=== PATIENT | female | born 1985 | race American Indian/Alaskan Native ===

== ENCOUNTER 2017-06-10 05:21 | Inpatient (IN) | payer MEDICAID ==
[~2017-06-10] VITALS: Ht 165.1 cm; Wt 128.0 kg
[2017-06-10] MEDS ORDERED: OXYTOCIN 30U/ 0.9% NaCL 500ML 500 ML IV SCH (05:22)
[2017-06-10] MEDS ORDERED: LACTATED RINGERS 1,000 ML IV SCH ×2 (05:22→05:30)
[2017-06-10] MEDS ORDERED: SODIUM CITRATE/CITRIC ACID 30 ML UDC PO ONE (05:30)
[2017-06-10] MEDS ORDERED: METOCLOPRAMIDE 5 MG/ML, 2ML IV ONE (05:30)
[2017-06-10] MEDS ORDERED: LACTATED RINGERS 1,000 ML IVBOLUS ONE (05:30)
[2017-06-10 05:36] VITALS: BP 115/65
[2017-06-10 06:02] LABS: HEMATOCRIT 36.2 % (34.6-47.8); HEMOGLOBIN 12.4 g/dL (11.7-16.4); WHITE BLOOD COUNT 7.2 x10^3/uL (3.4-10)
[2017-06-10] MEDS ORDERED: METOCLOPRAMIDE 5 MG/ML, 2ML ONE ×2 (06:03→07:38)
[2017-06-10] MEDS ORDERED: SODIUM CITRATE/CITRIC ACID 30 ML UDC ONE (06:03)
[2017-06-10] MEDS ORDERED: FENTANYL PF 100 MCG/2ML ONE (07:16)
[2017-06-10] MEDS ORDERED: ALBUTEROL SULFATE 2.5 MG/3 ML NPPB PRN (07:30)
[2017-06-10] MEDS ORDERED: FENTANYL PF 100 MCG/2ML IV PRN (07:30)
[2017-06-10] MEDS ORDERED: ONDANSETRON 2MG/ML, 2ML IVPush PRN (07:30)
[2017-06-10] MEDS ORDERED: MIDAZOLAM 1 MG/ML, 2ML IV PRN (07:30)
[2017-06-10] MEDS ORDERED: HYDROcodone/APAP 7.5-325MG/15ML UDC PO PRN (07:30)
[2017-06-10] MEDS ORDERED: OXYcodone 5 MG/5 ML ORAL.SOL UDC PO PRN (07:30)
[2017-06-10] MEDS ORDERED: EPHEDRINE 50 MG/ML, 1ML IVPush PRN (07:30)
[2017-06-10] MEDS ORDERED: MEPERIDINE/PF 25MG/0.5ML IVPush PRN (07:30)
[2017-06-10] MEDS ORDERED: PROMETHAZINE 25 MG/ML, 1ML IV PRN (07:30)
[2017-06-10] MEDS ORDERED: hydrALAzine 20 MG/ML, 1ML IV PRN (07:30)
[2017-06-10] MEDS ORDERED: LABETALOL 5MG/ML, 20ML IV PRN (07:30)
[2017-06-10] MEDS ORDERED: DEXAMETHASONE 4 MG/ML, 1ML ONE (07:38)
[2017-06-10] MEDS ORDERED: OXYTOCIN 10 UNITS/ML, 1ML ONE (07:38)
[2017-06-10] MEDS ORDERED: KETOROLAC 30 MG/1 ML ONE (07:38)
[2017-06-10] MEDS ORDERED: ONDANSETRON 2MG/ML, 2ML ONE (07:38)
[2017-06-10] MEDS ORDERED: EPHEDRINE 50 MG/ML, 1ML ONE (07:38)
[2017-06-10] MEDS ORDERED: CEFAZOLIN 1,000 MG ONE (07:38)
[2017-06-10] MEDS: LACTATED RINGERS 1,000 ML IV SCH ×5 (07:42→20:41)
[2017-06-10] MEDS: OXYTOCIN 30U/ 0.9% NaCL 500ML 500 ML IV SCH ×2 (07:42→17:42)
[2017-06-10] MEDS: KETOROLAC 30 MG/1 ML IV SCH ×3 (08:00→20:14)
[2017-06-10] MEDS ORDERED: MEPERIDINE/PF 25MG/0.5ML IM PRN (08:00)
[2017-06-10] MEDS ORDERED: ONDANSETRON 2MG/ML, 2ML IV PRN (08:00)
[2017-06-10] MEDS ORDERED: OXYcodone IR 5MG TABLET PO PRN ×2 (08:00)
[2017-06-10] MEDS ORDERED: SIMETHICONE 80 MG CHEW TAB PO PRN (08:00)
[2017-06-10] MEDS ORDERED: MISOPROSTOL 200 MCG TABLET PR PRN (08:00)
[2017-06-10] MEDS ORDERED: CALCIUM CARBONATE 500 MG TAB.CHEW PO PRN (08:00)
[2017-06-10] MEDS ORDERED: morphine SULFATE 10 MG/ML, 1ML IVPush PRN ×2 (08:00)
[2017-06-10] MEDS ORDERED: OXYcodone 5 MG/5 ML ORAL.SOL UDC ONE (09:15)
[2017-06-10] MEDS ORDERED: OXYTOCIN 30U/ 0.9% NaCL 500ML 500 ML ONE (09:15)
[2017-06-10 11:00] VITALS: BP 112/69
[2017-06-10] MEDS: MEPERIDINE/PF 50 MG/ML IM PRN ×2 (11:50→11:52)
[2017-06-10] MEDS ORDERED: MEPERIDINE/PF 100 MG/ML IM PRN (12:00)
[2017-06-10] MEDS: OXYcodone/APAP 5/325MG TABLET PO PRN ×3 (13:14→21:12)
[2017-06-10] MEDS: PRENATAL VIT/IRON/FA 1 EACH TABLET PO SCH (13:17)
[2017-06-10] MEDS: DOCUSATE 100 MG CAPSULE PO SCH ×2 (13:18→21:55)
[2017-06-10 16:00] VITALS: BP 122/62
[2017-06-10 16:31] LABS: HEMOGLOBIN 12.1 g/dL (11.7-16.4); WHITE BLOOD COUNT 10.5 x10^3/uL (3.4-10)
[2017-06-10 20:30] VITALS: BP 105/62
[2017-06-11 00:47] VITALS: BP 97/55
[2017-06-11] MEDS: KETOROLAC 30 MG/1 ML IV SCH (02:06)
[2017-06-11] MEDS: OXYcodone/APAP 5/325MG TABLET PO PRN ×4 (03:19→20:35)
[2017-06-11 03:28] VITALS: BP 104/65
[2017-06-11] MEDS: LACTATED RINGERS 1,000 ML IV SCH ×5 (03:42→23:42)
[2017-06-11] MEDS: OXYTOCIN 30U/ 0.9% NaCL 500ML 500 ML IV SCH ×2 (03:42→04:17)
[2017-06-11 07:20] VITALS: BP 95/52
[2017-06-11] MEDS: DOCUSATE 100 MG CAPSULE PO SCH ×2 (08:10→19:29)
[2017-06-11] MEDS: PRENATAL VIT/IRON/FA 1 EACH TABLET PO SCH (08:10)
[2017-06-11] MEDS: IBUPROFEN 600 MG TABLET PO PRN ×3 (08:10→20:35)
[2017-06-11] MEDS ORDERED: MEASLES,MUMPS&RUBELLA VACC/PF 0.5 ML SQ-VACC ONE ×2 (16:45→17:00)
[2017-06-11 19:20] VITALS: BP 137/69
[2017-06-12] MEDS: OXYcodone/APAP 5/325MG TABLET PO PRN ×2 (02:48→08:54)
[2017-06-12] MEDS: IBUPROFEN 600 MG TABLET PO PRN ×2 (02:49→08:54)
[2017-06-12] MEDS: LACTATED RINGERS 1,000 ML IV SCH (07:42)
[2017-06-12 08:25] VITALS: BP 111/72
[2017-06-12] MEDS: DOCUSATE 100 MG CAPSULE PO SCH (08:54)
[2017-06-12] MEDS ORDERED: OXYC-302 PO (10:08)
[2017-06-12] MEDS ORDERED: IBUP-1223 PO (10:09)
[2017-06-12] MEDS ORDERED: DOCU-131 PO (10:10)
== END 2017-06-12 11:46 | disposition home or self-care (01) | DRG 766 ==
LOC: LDIP 05:21 → 2NW 11:00
PROVIDERS: ADMIT Obstetrics & Gynecology; ATTEND Obstetrics & Gynecology
PROC: 10D00Z1 Extraction of Products of Conception, Low, Open Approach (ICD-10-PCS; principal; 2017-06-10)
DX: O34.211 Maternal care for low transverse scar from previous cesarean delivery (principal); E66.9 Obesity, unspecified; N73.6 Female pelvic peritoneal adhesions (postinfective); O24.425 Gestational diabetes mellitus in childbirth, controlled by oral hypoglycemic drugs; O99.89 Other specified diseases and conditions complicating pregnancy, childbirth and the puerperium; O99.214 Obesity complicating childbirth; Z3A.38 38 weeks gestation of pregnancy; Z37.0 Single live birth; Z83.3 Family history of diabetes mellitus
CPT/HCPCS: 36415; 82947; 85025; 86850; 86900; 86923; J0690; J1100; J1885; J2175; J2405; J3010; J2590; J2765; J7120